=== PATIENT | male | born 1940 | race Two or more races ===

== ENCOUNTER 2018-09-09 13:38 | Inpatient (IN) | payer SELFPAY ==
[~2018-09-09] VITALS: Ht 175.3 cm; Wt 72.5 kg
[2018-09-09] MEDS ORDERED: SODIUM CHLORIDE 0.9% 1,000 ML IV ONE (14:30)
[2018-09-09] MEDS ORDERED: INSULIN REGULAR, HUMAN 100 UNITS/ML IVP ONE (14:30)
[2018-09-09 14:42] LABS: BASOPHILS % (AUTO) 0.7 % (0.0-2.0); EOSINOPHILS % (AUTO) 0.6 % (1.0-6.0); LYMPHOCYTES # (AUTO) 0.7 K/uL (1.0-4.8); MEAN CORPUSCULAR HEMOGLOBIN 32.3 pg (26.0-34.0); MEAN CORPUSCULAR HGB CONC 33.1 G/dL (31.0-37.0); MEAN CORPUSCULAR VOLUME 98 fL (80-100); MONOCYTES # (AUTO) 0.4 K/uL (0.1-1.0); MONOCYTES % (AUTO) 5.6 % (2.0-9.0); NEUTROPHILS # (AUTO) 6.7 K/uL (1.8-7.7); NEUTROPHILS % (AUTO) 84.1 % (40.0-70.0); PLATELET COUNT (AUTO) 222 K/uL (150-450); RED BLOOD CELL COUNT(AUTO) 1.53 MIL/uL (4.50-5.90)
[2018-09-09 14:48] LABS: HEMATOCRIT 14.9 % (41-53); HEMOGLOBIN 4.9 g/dL (13.5-17.5)
[2018-09-09 14:55] LABS: ALBUMIN 2.3 g/dL (3.4-5.0); BILIRUBIN,TOTAL 0.2 mg/dL (0.1-1.0); CALCIUM, TOTAL 8.3 mg/dL (8.8-10.5); CREATININE 1.86 mg/dL (0.60-1.30); POTASSIUM 4.9 mmol/L (3.5-5.1); TOTAL PROTEIN, SERUM 5.3 g/dL (6.4-8.2)
[2018-09-09] MEDS ORDERED: PANTOPRAZOLE SODIUM 80 MG in SODIUM CHLORIDE 0.9% 100 ML IV SCH (15:30)
[2018-09-09 15:34] LABS: GLUCOSE,POINT OF CARE 397 MG/DL (70-110)
[2018-09-09] MEDS ORDERED: INSULIN LISPRO 100 UNITS/ML SQ PRN (16:45)
[2018-09-09] MEDS ORDERED: ONDANSETRON HCL 4 MG/2 ML VIAL IVP PRN ×2 (16:45→18:30)
[2018-09-09] MEDS ORDERED: PEG 3350/NA SULF,BICARB,CL/KCL 4000 ML SOLUTION PO ONE (16:45)
[2018-09-09] MEDS ORDERED: DEXTROSE 50%-WATER 25 GM/50 ML SYRINGE IVP PRN ×2 (16:45→18:45)
[2018-09-09 17:44] VITALS: BP 105/48
[2018-09-09 17:59] VITALS: BP 96/50
[2018-09-09 18:14] VITALS: BP 109/50
[2018-09-09 18:29] VITALS: BP 116/50
[2018-09-09] MEDS ORDERED: MAGNESIUM HYDROXIDE SUSPENSION 30 ML UDCUP PO PRN (18:30)
[2018-09-09] MEDS ORDERED: 0.9% SODIUM CHLORIDE 10 ML SYRINGE IVP PRN (18:30)
[2018-09-09] MEDS ORDERED: ACETAMINOPHEN 325 MG TABLET PO PRN (18:30)
[2018-09-09 18:59] VITALS: BP 123/57
[2018-09-09] MEDS ORDERED: METF-445 PO (20:11)
[2018-09-09] MEDS ORDERED: FERR-89 PO (20:11)
[2018-09-09] MEDS ORDERED: [UNRECOGNIZED DRUG - OTHER] PO (20:11)
[2018-09-09] MEDS ORDERED: SULI200T4 PO (20:11)
[2018-09-09] MEDS ORDERED: CHL25 PO (20:11)
[2018-09-09] MEDS ORDERED: LOSA25TA41 PO (20:11)
[2018-09-09] MEDS ORDERED: METO5TAB95 PO (20:11)
[2018-09-09] MEDS ORDERED: FOLI1 PO (20:11)
[2018-09-09] MEDS ORDERED: GLYB2.5 PO (20:12)
[2018-09-09] MEDS ORDERED: [UNRECOGNIZED DRUG - OTHER] PO (20:12)
[2018-09-09] MEDS: PANTOPRAZOLE SODIUM 80 MG in SODIUM CHLORIDE 0.9% 100 ML IV SCH (20:39)
[2018-09-09] MEDS: DOCUSATE SODIUM 100 MG CAPSULE PO SCH (21:00)
[2018-09-09 22:18] VITALS: BP 113/28
[2018-09-10] VITALS (19 sets, daily range): BP systolic 72–152; BP diastolic 33–76
[2018-09-10] MEDS ORDERED: OCTREOTIDE ACETATE 500 MCG in DEXTROSE 5%-WATER 97.5 ML IV SCH (00:30)
[2018-09-10] MEDS: PANTOPRAZOLE SODIUM 80 MG in SODIUM CHLORIDE 0.9% 100 ML IV SCH ×2 (01:51→13:50)
[2018-09-10 02:12] LABS: HEMATOCRIT 17.6 % (41-53); HEMOGLOBIN 5.8 g/dL (13.5-17.5)
[2018-09-10 03:49] LABS: GLUCOMETER DEV NAME(LOC) 5S.1; GLUCOSE,POINT OF CARE 387 MG/DL (70-110)
[2018-09-10 06:53] LABS: BASOPHILS % (AUTO) 0.2 % (0.0-2.0); EOSINOPHILS % (AUTO) 0 % (1.0-6.0); HEMATOCRIT 21.6 % (41-53); HEMOGLOBIN 7.6 g/dL (13.5-17.5); LYMPHOCYTES # (AUTO) 0.8 K/uL (1.0-4.8); LYMPHOCYTES % (AUTO) 8.4 % (22.0-44.0); MEAN CORPUSCULAR HEMOGLOBIN 31.9 pg (26.0-34.0); MEAN CORPUSCULAR HGB CONC 35.2 G/dL (31.0-37.0); MEAN CORPUSCULAR VOLUME 91 fL (80-100); MONOCYTES # (AUTO) 0.5 K/uL (0.1-1.0); MONOCYTES % (AUTO) 5.1 % (2.0-9.0); NEUTROPHILS # (AUTO) 8.6 K/uL (1.8-7.7); PLATELET COUNT (AUTO) 157 K/uL (150-450); RED BLOOD CELL COUNT(AUTO) 2.39 MIL/uL (4.50-5.90); RED CELL DISTRIBUTION WIDTH 14.9 % (11.5-14.5)
[2018-09-10 07:02] LABS: NEUTROPHILS % (AUTO) 86.3 % (40.0-70.0)
[2018-09-10 07:03] LABS: CALCIUM, TOTAL 7.5 mg/dL (8.8-10.5); CREATININE 1.75 mg/dL (0.60-1.30); POTASSIUM 5.1 mmol/L (3.5-5.1)
[2018-09-10] MEDS ORDERED: SODIUM CHLORIDE 0.9% 1,000 ML IV ONE ×2 (07:06→19:52)
[2018-09-10] MEDS: INSULIN LISPRO 100 UNITS/ML SQ PRN ×2 (07:12→13:23)
[2018-09-10 07:14] LABS: GLUCOSE,POINT OF CARE 380 MG/DL (70-110)
[2018-09-10] MEDS: DOCUSATE SODIUM 100 MG CAPSULE PO SCH ×2 (09:00→20:15)
[2018-09-10] MEDS ORDERED: LIDOCAINE/PF 2% 5 ML VIAL INJ ONE (12:00)
[2018-09-10] MEDS ORDERED: PROPOFOL 1% 20 ML VIAL IVP ONE (12:00)
[2018-09-10 13:49] LABS: GLUCOSE,POINT OF CARE 232 MG/DL (70-110)
[2018-09-10 18:47] LABS: HEMOGLOBIN 6.7 g/dL (13.5-17.5)
[2018-09-10 18:48] LABS: HEMATOCRIT 19.3 % (41-53)
[2018-09-10] MEDS: SUCRALFATE 1 GM/10 ML SUSPENSION UDCUP PO SCH ×2 (19:42→23:03)
[2018-09-11 02:44] LABS: GLUCOSE,POINT OF CARE 165 MG/DL (70-110)
[2018-09-11 02:44] LABS: GLUCOSE,POINT OF CARE 107 MG/DL (70-110)
[2018-09-11 05:20] LABS: APPEARANCE,URINE CLOUDY (CLEAR); BILIRUBIN,URINE NEGATIVE (NEGATIVE); GLUCOSE, URINE (UA) 250 mg/dL (NEGATIVE); KETONES,URINE NEGATIVE (NEGATIVE); LEUKOCYTE ESTERASE ,URINE MODERATE (NEGATIVE); NITRATE,URINE NEGATIVE (NEGATIVE); OCCULT BLOOD,URINE NEGATIVE (NEGATIVE); PH,URINE 5.5 (5.0-8.0); PROTEIN,URINE NEGATIVE (NEGATIVE); UROBILINOGEN,URINE 0.2 mg/dL (<=1.0)
[2018-09-11 05:30] LABS: BACTERIA,URINE Few /HPF (None Seen); RBC,URINE 0-2 /HPF (0-2); WBC,URINE 51-100 /HPF (0-5); YEAST,URINE Many /HPF (None Seen)
== END 2018-09-10 23:30 | disposition short-term general hospital (02) | DRG 377 ==
LOC: EMS 13:40 → 5S 16:56 → ICU 20:48
PROVIDERS: ADMIT Internal Medicine; ATTEND Internal Medicine
PROC: 30233N1 Transfusion of Nonautologous Red Blood Cells into Peripheral Vein, Percutaneous Approach (ICD-10-PCS; 2018-09-09)
PROC: 0DJ08ZZ Inspection of Upper Intestinal Tract, Via Natural or Artificial Opening Endoscopic (ICD-10-PCS; principal; 2018-09-10 07:30)
DX: K25.4 Chronic or unspecified gastric ulcer with hemorrhage (principal); E43 Unspecified severe protein-calorie malnutrition; E87.2 Acidosis; N17.9 Acute kidney failure, unspecified; E87.1 Hypo-osmolality and hyponatremia; E86.0 Dehydration; E11.65 Type 2 diabetes mellitus with hyperglycemia; D50.9 Iron deficiency anemia, unspecified; I10 Essential (primary) hypertension; Z68.23 Body mass index [BMI] 23.0-23.9, adult
CPT/HCPCS: 36430; 70450; 83540; 83550; 85014; 85018; 86850; 86900; 86901; 86920; 87081; 87086; 88305; 88312; 88313; 93005; 99291; C9113; G0378; J2354; J2405; J2704; J3490; J7030; J7050; J7060; P9016